=== PATIENT | female | born 1935 | race Caucasian/White ===

== ENCOUNTER 2022-10-28 10:00 | Emergency (ER) | payer BC, OTHER ==
[~2022-10-28] VITALS: Ht 152.4 cm; Wt 45.4 kg
[2022-10-28 10:05] VITALS: BP 149/86; PULSE 82; RESP 18; TEMP 98.1; O2SAT 98
[2022-10-28 10:10] VITALS: O2SAT 98
[2022-10-28] MEDS ORDERED: ACETAMINOPHEN 325 MG TAB PO ONE (10:50)
[2022-10-28] MEDS ORDERED: LIDOCAINE 5% 1 EA PATCH TP STA (10:50)
[2022-10-28] MEDS ORDERED: LID5T TP (12:24)
[2022-10-28 16:18] VITALS: BP 130/82; PULSE 78; RESP 18; TEMP 98.1; O2SAT 99
== END 2022-10-28 16:18 ==
LOC: MED 10:00
DX: S22.42XA Multiple fractures of ribs, left side, initial encounter for closed fracture (principal); F03.90 Unspecified dementia, unspecified severity, without behavioral disturbance, psychotic disturbance, mood disturbance, and anxiety; Z79.899 Other long term (current) drug therapy; Z88.8 Allergy status to other drugs, medicaments and biological substances; W18.30XA Fall on same level, unspecified, initial encounter; Y93.89 Activity, other specified; Y92.89 Other specified places as the place of occurrence of the external cause; Y99.8 Other external cause status
CPT/HCPCS: 71101; 93005; 99285

== ENCOUNTER 2022-12-16 16:52 | Emergency (ER) | payer BC, OTHER ==
[~2022-12-16] VITALS: Ht 162.6 cm; Wt 49.9 kg
[~2022-12-16 16:52] MED LIST: LID5T TP
[2022-12-16] MEDS ORDERED: ONDANSETRON 4 MG ODT PO ONE (17:05)
[2022-12-16 17:10] VITALS: BP 108/64; PULSE 95; RESP 18; TEMP 97; O2SAT 98
[2022-12-16 17:32] VITALS: BP 108/64; PULSE 95; RESP 18; TEMP 97; O2SAT 98
== END 2022-12-17 01:55 ==
LOC: MED 16:52
DX: R53.1 Weakness (principal); Z79.899 Other long term (current) drug therapy
CPT/HCPCS: 71045; 93005; 99283; Q0162